=== PATIENT | female | born 1995 | race Caucasian/White ===

== ENCOUNTER 2020-03-20 05:17 | Emergency (ER) | payer OTHER ==
[~2020-03-20] VITALS: Ht 162.6 cm; Wt 64.4 kg
[2020-03-20 05:26] VITALS: Ht 162.6 cm; Wt 64.4 kg
[2020-03-20 08:28] LABS: AMPHETAMINE QUAL UR NONE DETECTED (See below)
[2020-03-20 08:47] LABS: ALBUMIN 4.1 g/dL (3.4-5.0); ALKALINE PHOSPHATASE 54 U/L (46-116); ALT/SGPT 109 U/L (14-59); AMYLASE 58 U/L (25-115); AST/SGOT 28 U/L (15-37); BILIRUBIN TOTAL 0.9 mg/dL (0.20-1.00); CALCIUM 8.7 mg/dL (8.5-10.1); CHLORIDE SERUM 99 mmol/L (98-107); CREATININE SERUM 0.9 mg/dL (0.6-1.0); GFR1 > 60 mL/min; GLUCOSE SERUM 107 mg/dL (74-106); LIPASE 139 IU/L (73-393); SODIUM SERUM 140 mmol/L (136-145)
[2020-03-20 09:01] LABS: POTASSIUM SERUM 2.8 mmol/L (3.5-5.1)
[2020-03-20 09:16] LABS: BASOPHIL % 0.4 % (0-2); PLATELET COUNT 246 x10^3mcL (130-400); RED CELL DISTRIBUTION WIDTH 13.3 % (11.5-14.5)
[2020-03-20 09:40] VITALS: BP 110/61
== END 2020-03-20 09:40 | disposition home or self-care (01) ==
LOC: ED 05:17
PROVIDERS: Specialist
DX: R11.2 Nausea with vomiting, unspecified (principal); E86.0 Dehydration; E87.6 Hypokalemia; F12.229 Cannabis dependence with intoxication, unspecified; Z88.8 Allergy status to other drugs, medicaments and biological substances; Z90.49 Acquired absence of other specified parts of digestive tract
CPT/HCPCS: J2405